=== PATIENT | male | born 1955 | race Asian ===

== ENCOUNTER 2020-03-09 09:57 | Day surgery (SDC) | payer BC ==
[~2020-03-09] VITALS: Ht 177.8 cm; Wt 81.0 kg
[2020-03-09] VITALS (7 sets, daily range): BP systolic 115–134; BP diastolic 75–88
[2020-03-09] MEDS ORDERED: ondansetron/PF 4mg/2ml inj IV PRN (10:30)
[2020-03-09] MEDS ORDERED: ringers solution, lacted 1,000 ML IV SCH ×2 (10:30)
[2020-03-09] MEDS ORDERED: morphine 4 MG/ML inj SYRINge IV PRN (10:30)
[2020-03-09] MEDS ORDERED: meperidine/PF 25mg/ml syringe IV PRN ×3 (10:30)
[2020-03-09] MEDS ORDERED: labetalol 20mg/4ml (5mg/ml) syringe IV PRN (10:30)
[2020-03-09] MEDS ORDERED: hydrALAZINE 20mg/ml inj. IV PRN (10:30)
[2020-03-09] MEDS ORDERED: morphine 2 MG/ML inj. syringe IV PRN (10:30)
[2020-03-09] MEDS ORDERED: famotidine 20mg tablet PO ONE (10:30)
[2020-03-09] MEDS ORDERED: proCHLORperazine 10 MG/2 ml inj IV PRN (10:30)
[2020-03-09] MEDS ORDERED: acetaminophen 1,000mg/100ml IV 100 ML IV PRN (10:30)
[2020-03-09] MEDS ORDERED: PRAV20TA4 PO (10:40)
[2020-03-09] MEDS ORDERED: MELO-102 PO (10:40)
[2020-03-09] MEDS ORDERED: LOSA100T57 PO (10:40)
[2020-03-09] MEDS ORDERED: CEPH-572 PO (10:40)
[2020-03-09] MEDS ORDERED: DULA0.75 SQ (10:40)
[2020-03-09] MEDS ORDERED: BUPIVAcaine/PF 2.5mg/ml (0.25%) 10ml vial ONE (10:57)
[2020-03-09] MEDS ORDERED: sevoflurane 250ml liquid IH ONE (11:00)
[2020-03-09] MEDS ORDERED: acetaminophen 1000 MG/100ml vial IV ONE (11:00)
[2020-03-09] MEDS ORDERED: midazolam 2 mg/2 ml injection ONE (11:01)
[2020-03-09] MEDS ORDERED: clindamycin phosphate 150mg/ml inj. ONE (11:07)
[2020-03-09] MEDS ORDERED: fentaNYL/PF 50MCG/1 ML 2ML syringe ONE (11:18)
[2020-03-09] MEDS ORDERED: dexamethasone sod phosphate 4mg/ml inj. ONE (11:22)
[2020-03-09] MEDS ORDERED: propofol inj 20 ML IV ONE ×2 (11:22)
[2020-03-09] MEDS ORDERED: LIDOcaine 2% (20mg/ml) 5ml vial ONE (11:22)
[2020-03-09] MEDS ORDERED: ondansetron/PF 4mg/2ml inj ONE (11:22)
[2020-03-09] MEDS ORDERED: morphine 10mg/ml inj. ONE (11:36)
[2020-03-09] MEDS ORDERED: acetaminophen 1,000mg/100ml IV 100 ML IV ONE (11:49)
--- NOTE | 2020-03-09 11:59 | NUR ---
Received from OR via , accompanied by Anesthesiologist DR CORLEY and report given by Anesthesiolgist. NOT RESPONSIVE, VITALS STABLE. DRESSING DI. DOES NOT APPEAR TO BE IN ANY DISCOMFORT.
--- NOTE | 2020-03-09 12:59 | NUR ---
AWAKE AND ORIENTED. VITALS STABLE. SPLINT DI. LUIS E PAIN. [facility]
== END 2020-03-09 12:59 | disposition home or self-care (01) ==
LOC: PAS 09:57
PROVIDERS: ATTEND Orthopaedic Surgery Hand Surgery
DX: T81.49XA Infection following a procedure, other surgical site, initial encounter (principal); I10 Essential (primary) hypertension; E11.9 Type 2 diabetes mellitus without complications; E78.5 Hyperlipidemia, unspecified; Z79.899 Other long term (current) drug therapy; Z98.890 Other specified postprocedural states; Z72.89 Other problems related to lifestyle; Z20.828 Contact with and (suspected) exposure to other viral communicable diseases; Y83.8 Other surgical procedures as the cause of abnormal reaction of the patient, or of later complication, without mention of misadventure at the time of the procedure; Y92.89 Other specified places as the place of occurrence of the external cause
CPT/HCPCS: 13160; 82948; 87070; 87075; 87102; 87635; C9803; J0131; J1100; J2001; J2250; J2270; J2405; J2704; J3010; J3490; 87077; 87186; A4215; J7120